=== PATIENT | male | born 1945 | race Caucasian/White ===

== ENCOUNTER 2023-05-28 06:52 | Emergency (ER) | payer MEDICARE, OTHER, SELFPAY ==
--- NOTE | 2023-05-28 06:59 | ED.GENMED ---
History of Present Illness
General
Chief Complaint: Abdominal Symptoms
Source: patient
Exam Limitations: none
Time Seen by Provider: 05/28/23 06:54
History of Present Illness
History of Present Illness:
See MDM
Past History
Past History
ED Past Medical History: CAD, HTN, Hypercholesterolemia, IDDM and NIDDM
ED Past Surgical History: Cardiac
Social History
Tobacco: Former smoker
Alcohol: None
Drug: None
Personal:
Living: with family
Employment: Employed
Family History
Family History: Other
Phy Exam
Physical Exam
Physical Exam:
See MDM
Course
Orders/Labs/Results
Orders:
Orders
05/28/23 06:57
EKG [Electrocardiogram (*1)] Urgent
Reason for Study: Chest Pain
EKG- Treatment ONCE
05/28/23 06:58
Electrocardiogram (*1) Urgent
Reason for Study: Chest Pain
EKG- Treatment ONCE
CR Chest - 2 Views Urgent
Comment:
Reason For Exam: Chest pain
05/28/23 07:25
Complete Blood Count/With Diff Urgent
Comprehensive Metabolic Panel Urgent
Troponin I Urgent
05/28/23 09:13
CT Abd/pelvis W Iv Cont Urgent
Comment:
Reason For Exam: Mid abd pain
Famotidine [Pepcid] 20 mg IV NOW STA
05/28/23 09:16
Troponin I Urgent
Abnormal Lab Results
05/28/23
07:25
RBC 3.99 L 10^6/uL
(4.70-6.10)
Hgb 11.9 L g/dL
(13.0-18.0)
Hct 35.9 L %
(39.0-52.0)
RDW 14.9 H %
(11.5-14.5)
Absolute Neuts (auto) 7.3 H 10^3/uL
(1.4-6.5)
Absolute Lymphs (auto) 0.8 L 10^3/uL
(1.2-3.4)
Neutrophils % 82.3 H %
(42.2-75.2)
Lymphocytes % 9.3 L %
(20.5-51.1)
BUN 27 H mg/dl
(9-20)
Creatinine 1.6 H mg/dL
(0.7-1.3)
Glucose 185 H mg/dl
(70-99)
Total Protein 6.0 L g/dl
(6.3-8.2)
05/28/23 07:25
05/28/23 07:25
Vital Signs
Initial and Last Documented VS:
Initial Vital Signs
Temp Pulse Resp BP Pulse Ox
97.6 F 75 18 143/61 97
05/28/23 07:02 05/28/23 07:02 05/28/23 07:02 05/28/23 07:02 05/28/23 07:02
Last Documented Vital Signs
Temp Pulse Resp BP Pulse Ox
97.6 F 83 19 143/61 96
05/28/23 07:02 05/28/23 09:30 05/28/23 09:30 05/28/23 07:02 05/28/23 09:30
MDM/Problems Addressed
Differential Diagnosis Includes:
HPI and MDM Narrative:
78-year-old male presenting with central chest discomfort. This been ongoing for the past several hours. Patient got concerned because this reminds him of an issue he had 11 years ago where he required a CABG. He denies exertional symptoms. EMS
were initially called out for back pain the patient states his back pain is chronic concerned about his chest
Given his history, will obtain EKG and 2 troponins. Patient is well-appearing nontoxic on exam
Physical exam
General: Well appearing and non-toxic
HEENT: protecting airway
Neck: supple
CV: No evidence of cyanosis. Regular rate and rhythm
Resp: No accessory muscle use. Lungs clear
Abd: Non-distended and nontender. Evidence of diastases recti
Extremities: No deformities
Neuro: alert
Psych: Normal affect
Skin: Intact
Problems Addressed including Acute and Chronic Conditions affecting care:
1. Chest pain
Acuity: acute
Prognosis: stable
Details: Given his history, will EKG and 2 troponin rule out. Will obtain chest x-ray
Updates
8:45 AM patient sleeping without discomfort. I discussed with family that troponin and chest x-ray negative. Will obtain second troponin
CT negative for acute pathology. Patient remained symptom-free while in the emergency department. We discussed nonspecific blood work and nonspecific CT findings and family feels comfortable going home
Differential Diagnosis (but not limited to): Noncardiac chest pain, ACS, pneumothorax
Testing considered: D-dimer but he is neither tachycardic nor hypoxic
Drug therapy (if applicable): OTC meds, please see d/c instruction regarding Rx drugs
Amount and/or Complexity of Data Reviewed
Clinical info obtained from: Patient
External data reviewed: N/A
Labs I independently reviewed (but not limited to): Troponin normal
Radiology: X-ray independently reviewed: Chest x-ray clear and appears unchanged from prior
the CT scan was personally and independently reviewed. In addition, official CT report reviewed.
Pulse Ox: not hypoxic
EKG independently reviewed: Sinus rhythm, normal axis, no STEMI
Technical Illustrations Map Inker: Sinus rhythm
Critical Care: N/A
Risk of Complication:
Social Determinants of health: Good social support
Discussed with other providers: N/A
Escalation of Care includes Admit/Obs: After being observed in the Emergency Department, pt stable for discharge.
Occasional wrong word or 'sound a like' substitutions may have occurred due to the inherent limitations of voice recognition software. Read the chart carefully and recognize, using context, where substitutions have occurred.
*Critical Care Note
Total Time (30-74mins, 75-104mins- exclusive of procedures): Not Applicable
ED Attending Note
-
Portions of this chart may have been created with voice recognition software.� Occasional wrong word or��sound alike� substitutions may have occurred due to the inherent limitations of voice recognition software.
Discharge Plan
Departure
Patient Disposition: Home (Routine Discharge)
Date of Disposition: 05/28/23
Time of Disposition: 10:52
Patient with high blood pressure during this ER visit?: Yes
Discharge Problem:
Chest pain, Diastasis recti
Instructions: Abdominal Pain, BLOOD PRESSURE
Prescriptions:
No Action
clopidogrel 75 MG tablet
75 mg PO DAILY
Atorvastatin
1 tab PO DAILY
Patient Comments:
Pt does not know dosage.
losartan 50 MG tablet
100 mg PO DAILY
pioglitazone 30 MG tablet
30 mg PO DAILY
cholecalciferol (vitamin D3) 2,000 UNIT tablet
2,000 unit PO DAILY
exenatide microspheres [Bydureon] 2 MG/0.65 ML pen injector
2 mg SQ WEEKLY
glipizide 10 MG tablet
10 mg PO DAILY
metoprolol tartrate 25 MG tablet
25 mg PO BID
Referrals:
Susana Latham DO [Family Provider] -
Activity Restrictions/Additional Instructions:
Please return for any worsening symptoms.
You may return at any time if you have further concerns.
Please follow up with your doctor at the first available appointment, preferably this week.
Thank you for choosing [facility].
Interventions
Interventions:
*Risk Screen - Suicide Last Done: 05/28/23 07:35
*General Assessment Last Done: 05/28/23 07:35
*Neglect/Abuse Screening Last Done: 05/28/23 07:35
ED- Fall Risk Assessment Last Done: 05/28/23 07:35
*ED COVID-19 Vaccine History Last Done: 05/28/23 07:35
RK-Gcbwmt-Ejhjboqoyv Assessment Last Done: 05/28/23 07:35
Discharge Date and Time
Print Language: JAPANESE
[2023-05-28 07:02] VITALS: BP 143/61
[2023-05-28 07:38] LABS: % Basophils 0.5 % (0-2); % Eosinophils 0.5 % (0-6); % Immature Granulocytes 0.5 % (0-0.5); % Lymphocytes 9.3 % (20.5-51.1); % Monocytes 6.9 % (1.7-9.3); % Neutrophils 82.3 % (42.2-75.2); Absolute Lymphocytes 0.8 10^3/uL (1.2-3.4); Absolute Monocytes 0.6 10^3/uL (0.1-0.6); Absolute Neutrophils 7.3 10^3/uL (1.4-6.5); Hematocrit 35.9 % (39.0-52.0); Hemoglobin 11.9 g/dL (13.0-18.0); Mean Corp Hgb Conc. 33.1 g/dL (33.0-37.0); Mean Corpuscular Hgb 29.8 pg (27.0-31.0); Mean Platelet Volume 9.5 fL (7.4-10.4); Nucleated Red Blood Cells % 0 % (-); Platelet Count 266 10^3/uL (130-400); Red Blood Cell Count 3.99 10^6/uL (4.70-6.10); Red Cell Dist. Width 14.9 % (11.5-14.5); White Blood Cell Count 8.9 10^3/uL (4.8-10.8)
[2023-05-28 07:51] LABS: ALT (SGPT) 15 U/L (0-50); AST (SGOT) 24 U/L (17-59); Albumin 3.7 g/dl (3.5-5.0); Alkaline Phosphatase 80 U/L (38-126); Blood Urea Nitrogen 27 mg/dl (9-20); Calcium 9.5 mg/dl (8.4-10.2); Carbon Dioxide 27 mmol/L (22-30); Chloride 104 mmol/L (98-107); Glucose 185 mg/dl (70-99); Potassium 4.4 mmol/L (3.5-5.1); Sodium 137 mmol/L (135-145); Total Bilirubin 0.6 mg/dl (0.2-1.3); eGFR 43.29
[2023-05-28 07:59] LABS: Troponin I < 0.012 ng/ml
[2023-05-28] MEDS: PEPCID 20 MG IV (09:23)
[2023-05-28 09:50] LABS: Troponin I < 0.012 ng/ml
== END 2023-05-28 11:00 | disposition home or self-care (01) ==
LOC: EMR 06:52
PROVIDERS: EMERGENCY PHYSICIAN Student in an Organized Health Care Education/Training Program; FAMILY PHYSICIAN Family Medicine
DX: R07.89 Other chest pain (principal); M62.08 Separation of muscle (nontraumatic), other site; I10 Essential (primary) hypertension; Z87.891 Personal history of nicotine dependence
CPT/HCPCS: 99285; 96374; 71046; 74177; 80053; 84484; 85025; 93005; Q9967